=== PATIENT | female | born 1995 | race African-American/Black ===

== ENCOUNTER 2017-04-27 16:20 | Emergency (ER) | payer OTHER ==
[~2017-04-27] VITALS: Ht 172.7 cm; Wt 68.0 kg
[~2017-04-27 16:20] MED LIST: MACROBID 100 M100 M1 PO
[2017-04-27] MEDS ORDERED: IBUPROFEN 600600 M1 PO (18:01)
[2017-04-27] MEDS ORDERED: HYDROCODONE-AP1 EAC6 PO (18:01)
[2017-04-27 19:44] VITALS: BP 119/55
== END 2017-04-27 19:45 | disposition home or self-care (01) ==
LOC: ER 16:20
DX: S60.222A Contusion of left hand, initial encounter (principal); S20.229A Contusion of unspecified back wall of thorax, initial encounter; S80.12XA Contusion of left lower leg, initial encounter; S80.11XA Contusion of right lower leg, initial encounter; S09.90XA Unspecified injury of head, initial encounter; F17.210 Nicotine dependence, cigarettes, uncomplicated; Y00.XXXA Assault by blunt object, initial encounter; Y93.89 Activity, other specified; Y92.89 Other specified places as the place of occurrence of the external cause; Y99.8 Other external cause status

== ENCOUNTER 2019-12-12 00:59 | Inpatient (IN) | payer BC, OTHER ==
[~2019-12-12] VITALS: Ht 152.4 cm; Wt 64.0 kg
[~2019-12-12 00:59] MED LIST changes: +HYDROCODONE-AP1 EAC6 PO; +IBUPROFEN 600600 M1 PO
[2019-12-12 01:00] VITALS: BP 112/71
--- NOTE | 2019-12-12 01:10 | NUR ---
PATIENT IS HAVING TROUBLE FOLLOWING REQUESTS TO KEEP HER MASK OVER HER NOSE AND MOUTH. HAS BEEN EDUCATED BY STAFF AND CHARGE NURSE. PATIENT IS BEING BELIGERENT WITH STAFF AT BEDSIDE. STATING THAT "YOU NEED TO HURRY THIS UP, I HATE COMING TO THE [facility]". DR. VILLALOBOS. PATIENT'S MASK REMAINS IN PLACE AT THIS TIME.
[2019-12-12] MEDS ORDERED: tylenol (01:14)
[2019-12-12 01:35] LABS: HEMATOCRIT 34.7 % (37.0-47.0); HEMOGLOBIN 10.3 gm/dL (12.0-15.0); MCH 19.2 pg (26.0-34.0); MCHC 29.7 g/dL (28.0-37.0); MCV 64.8 fL (80.0-100.0); RBC 5.35 mil/uL (4.20-5.00); RDW 18.6 % (10.5-14.5); WBC 32.7 thou/uL (4.0-11.0)
[2019-12-12 01:46] LABS: ALBUMIN 3.4 g/dL (3.4-5.0); CALCIUM 9.1 mg/dL (8.5-10.1); TOTAL BILIRUBIN 0.6 mg/dL (0.2-1.0); TOTAL PROTEIN 8.9 g/dL (6.4-8.2)
[2019-12-12 01:53] LABS: POTASSIUM 2.9 mmol/L (3.5-5.1)
[2019-12-12 03:57] VITALS: BP 102/69
--- NOTE | 2019-12-12 04:05 | NUR ---
CALLED 4W TO GIVE REPORT. PT IS UNAVAILABLE FOR REPORT.
[2019-12-12 07:53] VITALS: BP 121/77
[2019-12-12 14:01] LABS: % SATURATION 2 % (20-39); IRON 5 ug/dL (50-170); TIBC 250 ug/dL (250-450)
[2019-12-12 14:11] LABS: MAGNESIUM 1.7 mg/dL (1.8-2.4); POTASSIUM 3.2 mmol/L (3.5-5.1)
--- NOTE | 2019-12-12 14:50 | NUR ---
CM ATTEMPTED MULTIPAL PHONE CALLS TO PT'S ROOM TO ASSESS FOR POSSIBLE NEEDS UPON DC. PT HASN'T ANSWERED THE PHONE. CM TO ATTEMPT TO CONTACT PT.
[2019-12-12 14:57] VITALS: BP 110/65
[2019-12-12 20:07] VITALS: BP 106/68
--- NOTE | 2019-12-12 20:10 | NUR ---
Received asleep on bed, rousable. On clear liquid diet- offered clear liquid menu; tolerating well, no nausea, no vomiting and no abdominal pain noted. on room air. Vital signs stable. A+Ox4, pt slept most of the day. Continent of bowel and bladder, standby assist going to the toilet; still a/w specimen for stool sample- slab miller operator nurse informed. Assisted in ADLs. Maintained on clear liquid diet. With low grade fever this afternoon- HEALTH EDUCATION DIRECTOR Georgette informed, PRN tylenol given. K replaced orally, Mg replaced thru IV. To continue monitoring patient. Pt became upset this evening, wanting to eat or be discharged, explained to pt the importance and indication to stay, pt calmed down and agreed to stay in the hospital and on clear liquids.
[2019-12-13 04:52] VITALS: BP 105/65
--- NOTE | 2019-12-13 06:00 | NUR ---
Pt. upset last evening due to her clear liquid diet and wanted to leave. Diet explained to pt. along with her diagnosis with some understanding. She was upset because she wanted to eat her candy that was in her bed. She c/o abdominal pain and nausea and was medicated with some relief noted (see emar). Assisted to the bathroom with standby assistance. Candy placed away from pt. in her room.
[2019-12-13 08:04] VITALS: BP 109/58
[2019-12-13 08:44] LABS: ABSOLUTE NEUTROPHILS 9.7 thou/uL (1.4-8.2); BASOPHILS 0.4 % (0.0-2.0); EOSINOPHILS 0.9 % (0.0-3.0); LYMPHOCYTES 10.7 % (24.0-44.0); MCH 19.5 pg (26.0-34.0); MCHC 30.1 g/dL (28.0-37.0); MCV 64.9 fL (80.0-100.0); MONOCYTES 6.4 % (1.0-8.0); POLYS 81.6 % (36.0-66.0); RBC 3.85 mil/uL (4.20-5.00); RDW 18.6 % (10.5-14.5)
[2019-12-13 08:57] LABS: ALBUMIN 2.1 g/dL (3.4-5.0); CREATININE 0.7 mg/dL (0.6-1.0); POTASSIUM 3.8 mmol/L (3.5-5.1); TOTAL BILIRUBIN 0.4 mg/dL (0.2-1.0); TOTAL PROTEIN 6.4 g/dL (6.4-8.2)
[2019-12-13 09:01] LABS: WBC 11.9 thou/uL (4.0-11.0)
[2019-12-13 09:02] LABS: HEMOGLOBIN 7.5 gm/dL (12.0-15.0); PLATELET COUNT 381 thou/uL (150-400)
[2019-12-13 12:40] LABS: ANISOCYTOSIS 2+; HYPOCHROMASIA 3+; MICROCYTES 3+; OVALOCYTES 1+; TEARDROPS FEW
[2019-12-13 15:25] VITALS: BP 122/68
[2019-12-13 19:35] VITALS: BP 108/69
--- NOTE | 2019-12-13 19:41 | NUR ---
PT A&OX4, VSS, PAIN IN ABDOMEN. STOOL SAMPLE COLLECTED. PATIENT TOLERATING DIET. PAIN [id number] GIVEN. NO SIGNS OF DISTRESS. WILL CONTINUE TO MONITOR.
--- NOTE | 2019-12-14 04:17 | NUR ---
Pt. rested quietly in bed all shift. C/o abdominal pain and po pain meds given (see emar) with some relief noted. No c/o nausea or vomiting. Up to the bathroom with stand by assistance.
--- NOTE | 2019-12-14 07:51 | NUR ---
It was reported to this nurse from staff that patient was useing profanity at a staff. During bedside report Annamarie CARO and I confronted pt about this. She started yelling and cussing when I informed her that she could not talk to staff in a beligerent manner. Pt. said the engineering lab technician almost broke her neck and wasw laughing about it when she got out of the shower. Pt. did not even shower last night. This was also witnessed by another engineering lab technician with the verbal behavior. Pt. then started accusing this nurse that I was in the room at the time, but I was not in the room. Nurse land development manager heard pt. yelling also and plans to meet with her later.
[2019-12-14 07:58] LABS: HEMATOCRIT 26.1 % (37.0-47.0); MCHC 30.8 g/dL (28.0-37.0); MCV 64.9 fL (80.0-100.0); RBC 4.02 mil/uL (4.20-5.00); RDW 18.7 % (10.5-14.5); WBC 7.3 thou/uL (4.0-11.0)
[2019-12-14] MEDS ORDERED: AUGMENTIN 875-1 EACH PO (09:29)
--- NOTE | 2019-12-14 09:46 | NUR ---
Assumed pt care this am, pt has been beligerent accusing staff of not giving her care and mentioned "almost broke my neck when that aid was suppose to help me but she does not", pt could not point out who it was and staterd accusing her nurse. Pt has been refusing care, labs and medications. Was able to convine pt to have her labs drawn this am. Med Spa Manager came in to talk tro the pt, and we able to convince for her to have her labs drawn. At 930 am pt called and asked when she was being discharged, then started calling the sceretary names, I walked in and pt was accusing the staff and myself of touching her things and to to look at her food tray that she had just eaten off. Accusing that she has not been taken cared of and we have been "drugging her up". Pt was getting loud and aggressive. i formed the pt i will need to talk to ther doctor since discharge orders have not been given. Pt still went on being beligerent and accusing the staff of the same things, security was called, pt was informed of her rights to go ama. Pt wanted to get her papers but refused to sing. Silviano sams and pmp certified project manager, bryson sams came to talk to the pt, turned over care to maddie CARO to take over care.
--- NOTE | 2019-12-14 12:17 | NUR ---
CARE TEAM INDICATED THAT PT IS MEDICALLY STABLE TO DC HOME THIS DAY. PT IS TO FOLLOW UP ON AN OP BASIS WITH GI. NO OTHER CM INTERVENTION INDICATED. CASE CLOSED.
--- NOTE | 2019-12-14 13:07 | NUR ---
PT IS AOX3, AGGITATED WITH STAFF. PT IS VERBALLY ABUSIVE TO STAFF. REFUSED MEDS ONLY WANTED PAIN MEDICATION. PT RECEIVED DISCHARGE INSTRUCTIONS AND AGREED. IV REMOVED FROM ARM. NURSE TOOK PT OUT FOR A FAMILY CAR TO GO HOME.
== END 2019-12-14 13:18 | disposition home or self-care (01) | DRG 872 ==
LOC: ER 00:59 → EROBS 03:42 → 4W 03:42
PROVIDERS: Nurse Practitioner; Nurse Practitioner Family; Student in an Organized Health Care Education/Training Program; ADMIT Hospitalist
DX: A41.9 Sepsis, unspecified organism (principal); K52.9 Noninfective gastroenteritis and colitis, unspecified; F17.210 Nicotine dependence, cigarettes, uncomplicated; E87.6 Hypokalemia; D50.9 Iron deficiency anemia, unspecified; Z79.899 Other long term (current) drug therapy
CPT/HCPCS: 10045

== ENCOUNTER 2021-01-17 06:50 | Emergency (ER) | payer OTHER ==
[~2021-01-17] VITALS: Ht 172.7 cm; Wt 61.2 kg
[~2021-01-17 06:50] MED LIST changes: +AUGMENTIN 875-1 EACH PO; +tylenol
[2021-01-17 07:55] LABS: URINE BILIRUBIN NEGATIVE (Negative); URINE BLOOD 3+ (Negative); URINE CLARITY CLEAR; URINE COLOR YELLOW; URINE GLUCOSE-RANDOM* NEGATIVE (Negative); URINE KETONES 1+ (Negative); URINE LEUKOCYTES-REFLEX TRACE (Negative); URINE NITRITE-REFLEX NEGATIVE (Negative); URINE PROTEIN (DIPSTICK) 1+ (Negative); URINE SPECIFIC GRAVITY >= 1.030 (1.005-1.035)
[2021-01-17 08:18] LABS: CASTS None Seen /LPF (None Seen); MUCUS >6 Heavy strn/LPF (None Seen); SQUAMOUS >10 Many /LPF (0-3)
[2021-01-17 08:20] LABS: BACTERIA-REFLEX 1-9 Few /HPF (None Seen); CRYSTALS None Seen /LPF (None Seen); URINE RBC 1-2 Rare /HPF (NONE SEEN); URINE WBC-REFLEX 6-15 Few /HPF (0-5)
[2021-01-17] MEDS ORDERED: CIPROFLOXACIN500 M1 PO (08:36)
[2021-01-17] MEDS ORDERED: DOXYCYCLINE 10100 MG PO (08:36)
[2021-01-17 09:06] VITALS: BP 106/66
== END 2021-01-17 09:07 | disposition home or self-care (01) ==
LOC: ER 06:50
PROVIDERS: Emergency Medicine
DX: N39.0 Urinary tract infection, site not specified (principal); R30.0 Dysuria; F17.210 Nicotine dependence, cigarettes, uncomplicated